=== PATIENT | male | born 1965 | race Two or more races ===

== ENCOUNTER 2020-05-13 06:14 | Day surgery (SDC) | payer OTHER ==
--- NOTE | 2020-04-15 07:51 | Pre-Procedure Note/Attestation ---
Pre-Procedure Note/Attestation Complete Prior to Procedure Planned Procedure: left Procedure Narrative: shoulder arthrscopy, sad Indications for Procedure Pre-Operative Diagnosis: left shoulder impingement syndrome Attestation I attest that I discussed the nature of the procedure; its benefits; risks and complications; and alternatives (and the risks and benefits of such alternatives), prior to the procedure, with the patient (or the patient's legal retail representative). I attest that, if there was a reasonable possibility of needing a blood transfusion, the patient (or the patient's legal retail representative) was given the [facility] standardized written summary, pursuant to the Aleksander Demetria Blood Safety Act ([place] Health and Safety Code # 1645, as amended). I attest that I re-evaluated the patient just prior to the surgery and that there has been no change in the patient's H&P, except as documented below: Kale Gutierrez MD Apr 15, 2020 07:51
--- NOTE | 2020-04-15 07:52 | Operative Note - PDOC ---
Operative Note Operative Note Pre-op Diagnosis: left shoulder impingement syndrome Procedure: see op report Post-op Diagnosis: same as pre-op plus Operative Findings: consistent w/pre-op dx studies Anesthesia: MAC Specimen: none Complications: none Condition: stable Estimated Blood Loss: none Drains: none Implant(s) used?: No Kale Gutierrez MD Apr 15, 2020 07:52
[2020-05-13] VITALS (11 sets, daily range): BP systolic 106–125; BP diastolic 57–78
[~2020-05-13] VITALS: Ht 180.3 cm; Wt 104.4 kg
[~2020-05-13 06:14] MED LIST: BRILINTA90 MG PO; D5 1/2NS 1,000 ML IV SCH; HYDROcodone/Acetamin 5/325 tab ORAL PRN; HYDROmorphone 1mg/ml Carpuject SUBQ PRN; Lidocaine 1% MPF 10mg/ml 5ml ONE; Midazolam 2mg/2ml Inj ONE; Ropivacaine 5mg/ml Vial 20ml INJ ONE; Tylenol #3 tab (300mg/30mg) ORAL PRN; XARELTO10 MG ORAL; ceFAZolin 1gm IVPB IVPB ONE; celeBREX 200mg Cap **SURGERY PATIENTS ONLY ORAL ONE; fentaNYL 100 mcg/2 mL IV ONE; oxyCONTIN 20mg tab ORAL ONE
[2020-05-13] MEDS ORDERED: METAPROLOL (07:23)
[2020-05-13] MEDS ORDERED: oxyCONTIN 20mg tab ORAL ONE (07:46)
--- NOTE | 2020-05-13 08:02 | Operative Note - PDOC ---
Operative Note Operative Note Pre-op Diagnosis: left shoulder impingement syndrome Procedure: see op report Post-op Diagnosis: same as pre-op plus Operative Findings: consistent w/pre-op dx studies Anesthesia: regional, MAC Specimen: none Complications: none Condition: stable Estimated Blood Loss: none Drains: none Implant(s) used?: No Kale Gutierrez MD May 13, 2020 08:02
--- NOTE | 2020-05-13 08:02 | Pre-Procedure Note/Attestation ---
Pre-Procedure Note/Attestation Complete Prior to Procedure Planned Procedure: left Procedure Narrative: shoulder arthroscopy, sad Indications for Procedure Pre-Operative Diagnosis: left shoulder impingement syndrome Attestation I attest that I discussed the nature of the procedure; its benefits; risks and complications; and alternatives (and the risks and benefits of such alternatives), prior to the procedure, with the patient (or the patient's legal customer service representative teacher). I attest that, if there was a reasonable possibility of needing a blood transfusion, the patient (or the patient's legal customer service representative teacher) was given the [facility] standardized written summary, pursuant to the Aleksander Demetria Blood Safety Act ([place] Health and Safety Code # 1645, as amended). I attest that I re-evaluated the patient just prior to the surgery and that there has been no change in the patient's H&P, except as documented below: Kale Gutierrez MD May 13, 2020 08:02
[2020-05-13] MEDS ORDERED: HYDROcodone/Acetamin 5/325 tab ORAL PRN (08:15)
[2020-05-13] MEDS ORDERED: Tylenol #3 tab (300mg/30mg) ORAL PRN (08:15)
[2020-05-13] MEDS ORDERED: HYDROmorphone 1mg/ml Carpuject SUBQ PRN (08:15)
[2020-05-13] MEDS ORDERED: fentaNYL 100 mcg/2 mL IV ONE (09:30)
[2020-05-13] MEDS ORDERED: Midazolam 2mg/2ml Inj ONE (09:31)
[2020-05-13] MEDS ORDERED: Lidocaine 1% MPF 10mg/ml 5ml ONE (09:33)
[2020-05-13] MEDS ORDERED: Ropivacaine 5mg/ml Vial 30ml INJ ONE (09:43)
--- NOTE | 2020-05-13 09:57 | Anethesia Preoperative Eval ---
Anesthesia Pre-op PMH/ROS General Date of Evaluation: May 13, 2020 Time of Evaluation: 09:52 Anesthesiologist: Amanda ASA Score: ASA 2 Mallampati Score Class I : Soft palate, uvula, fauces, pillars visible Class II: Soft palate, uvula, fauces visible Class III: Soft palate, base of uvula visible Class IV: Only hard plate visible Mallampati Classification: Class II Surgeon: Matt Diagnosis: L shoulder pain Surgical Procedure: L shoulder scope Anesthesia History: none Family History: no anesthesia problems Allergies: Coded Allergies: RED (FOOD COLOR) (Verified Allergy, Intermediate, numbness in lips with skin peeling, 04/14/20) Medications: see eMAR Patient NPO?: Yes Past Medical History Cardiovascular: Reports: HTN, CAD - coronary sten in place no recent CP Pulmonary: Denies: asthma, COPD, PILI, other Gastrointestinal/Genitourinary: Reports: GERD; Denies: CRI, ESRD, other Neurologic/Psychiatric: Reports: depression/anxiety; Denies: dementia, CVA, TIA, other Endocrine: Denies: DM, hypothyroidism, steroids, other HEENT: Denies: cataract (L), cataract (R), glaucoma, [place] (L), [place] (R), other Hematology/Immune: Reports: DVT - lower exremities, anticoagulaed Musculoskeletal/Integumentary: Denies: OA, RA, DJD, DDD, edema, other Other: other - overweight PMH Narrative: as above PSxH Narrative: coronary angiogram Anesthesia Pre-op Phys. Exam Physician Exam Last Vital Signs Date Time Temp Pulse Resp B/P (MAP) Pulse Ox O2 Delivery O2 Flow Rate FiO2 05/13/20 07:25 Room Air 05/13/20 07:15 97.1 54 18 117/71 100 Constitutional: NAD Neurologic: CN 2-12 intact Cardiovascular: RRR, no M/R/G Respiratory: CTA Gastrointestinal: S/NT/ND Airway Exam Mallampati Score: Class II MO: full Neck: stiff ROM: full Teeth: intact Dentures: no upper, no lower Anesthesia Pre-op A/P Labs see chart Studies Pre-op Studies: EKG - NSR Risk Assessment & Plan Assessment: ASA 2 Plan: GA with LMA brachial plexus block for postop pain control Status Change Before Surgery: No Pre-Antibiotics Drug: Ancef 2gr Given Within 1 Hr of Incision: Yes Time Given: 11:10 Sherwin Patel MD May 13, 2020 09:57
[2020-05-13] MEDS ORDERED: LR 1000ml 1,000 ML IVLG SCH (10:00)
[2020-05-13] MEDS ORDERED: DiphenhydrAMINE 50mg/ml Inj IVP PRN (10:00)
[2020-05-13] MEDS ORDERED: Meperidine 25mg/1ml Inj (FOR RIGORS ONLY) IV PRN (10:00)
[2020-05-13] MEDS ORDERED: Ketorolac 30mg Inj IV PRN (10:00)
[2020-05-13] MEDS ORDERED: Ketorolac 30mg Inj ONE ×2 (11:42→12:44)
[2020-05-13] MEDS ORDERED: Duramorph PF 5mg/10ml amp ONE (11:42)
[2020-05-13] MEDS ORDERED: Kenalog-40 1ml Vial ONE (11:42)
[2020-05-13] MEDS ORDERED: EPINEPHrine 1mg/1ml Amp ONE (11:42)
[2020-05-13] MEDS ORDERED: Bupivacaine 0.25% Inj 30ml INJ ONE (11:43)
[2020-05-13] MEDS ORDERED: LR 1000ml ONE (12:00)
[2020-05-13] MEDS ORDERED: Sterile Water Irrig 1000ml IRRIG ONE (12:00)
[2020-05-13] MEDS ORDERED: D5 1/2NS 1,000 ML IV SCH (12:00)
[2020-05-13] MEDS ORDERED: NS Irrig 3000ml IRRIG ONE ×2 (12:28→12:49)
[2020-05-13] MEDS ORDERED: Sodium Chloride 10ml vial INJ ONE (12:36)
[2020-05-13] MEDS ORDERED: ePHEDrine 50mg/ml Inj ONE (12:36)
--- NOTE | 2020-05-13 13:26 | Immediate Post-Op Evaluation ---
Immediate Post-Op Evalulation Immediate Post-Op Evalulation Procedure: L shoulder arthroscopy with subacromion decompression Date of Evaluation: May 13, 2020 Time of Evaluation: 13:25 IV Fluids: 700 Blood Products: none Estimated Blood Loss: min Urinary Output: none Blood Pressure Systolic: 113 Blood Pressure Diastolic: 72 Pulse Rate: 56 Respiratory Rate: 18 O2 Sat by Pulse Oximetry: 99 Temperature (Fahrenheit): 98.5 Pain Score (1-10): 1 Nausea: No Vomiting: No Complications none Patient Status: reacts, patent, none Hydration Status: adequate Sherwin Patel MD May 13, 2020 13:26
--- NOTE | 2020-05-13 15:05 | 48 Hour Post Anesthesia Eval ---
Post Anesthesia Evaluation Procedure: L shoulder arthroscopy with subacromion decompression Date of Evaluation: May 13, 2020 Time of Evaluation: 15:04 Blood Pressure Systolic: 116 0: 72 Pulse Rate: 58 Respiratory Rate: 20 Temperature (Fahrenheit): 97.6 O2 Sat by Pulse Oximetry: 98 Airway: patent Nausea: No Vomiting: No Pain Intensity: 1 Hydration Status: adequate Cardiopulmonary Status: stable Mental Status/LOC: patient returned to baseline Follow-up Care/Observations: n/a Post-Anesthesia Complications: none Follow-up care needed: ready to discharge Sherwin Patel MD May 13, 2020 15:05
--- NOTE | 2020-05-13 16:00 | Operative Note - Dictated ---
DATE OF OPERATION: 05/13/2020 PREOPERATIVE DIAGNOSIS: Left shoulder internal derangement. POSTOPERATIVE DIAGNOSES: 1. Grade 1 SLAP tear. 2. Left bursitis/tendinitis. PROCEDURE: 1. Left shoulder diagnostic arthroscopy and extensive intraarticular debridement. 2. Left shoulder subacromial decompression bursectomy. SURGEON: Kale Gutierrez MD ANESTHESIA: Interscalene with general. INDICATION FOR PROCEDURE: Patient is a pleasant 54-year-old gentleman who continued to have left shoulder pain. He failed conservative treatment and positive diagnostic injection with continued issues. He elected to undergo left shoulder arthroscopy and subacromial decompression bursectomy. Risks, limitations, expectations, and complications of the procedure were discussed in detail. All questions addressed. DESCRIPTION OF PROCEDURE: After informed consent was obtained, patient was brought to the operating room. Patient was placed under interscalene general anesthesia. Left shoulder was prepped and draped in a sterile manner. Ancef was administered. Time-out was performed. Inferolateral stab incision was then made. Trocar was introduced into the shoulder joint. Systematic tour of the shoulder was performed. No chondral damage. The anterior labrum was intact. Fraying of the superior labrum. Biceps tendon was intact. The articular side of the rotator cuff was intact. Shaver was then placed through the rotator interval. Debridement of superior labrum was performed. Negative peel-back test was confirmed. At that point, the camera was placed in the subacromial space. There was hypertrophic bursal tissue. The undersurface of the acromion was identified. Acromioplasty was started from lateral to medial and completed from posterior to anterior. At that point, the bursectomy was completed. Instruments removed. Portal sites were closed with 3-0 Monocryl sutures. ESTIMATED BLOOD LOSS: None. COMPLICATIONS: None. SPECIMENS: None. IMPLANTS: None. Kale Gutierrez M.D. DR: RAINA JOB#: [id number] CC:
== END 2020-05-13 15:20 | disposition home or self-care (01) ==
LOC: SUR 06:14
DX: M75.22 Bicipital tendinitis, left shoulder (principal); S43.432A Superior glenoid labrum lesion of left shoulder, initial encounter; X58.XXXA Exposure to other specified factors, initial encounter; Y92.9 Unspecified place or not applicable; I11.9 Hypertensive heart disease without heart failure; I25.10 Atherosclerotic heart disease of native coronary artery without angina pectoris; Z95.5 Presence of coronary angioplasty implant and graft; K21.9 Gastro-esophageal reflux disease without esophagitis; F32.9 Major depressive disorder, single episode, unspecified; F41.9 Anxiety disorder, unspecified; Z86.718 Personal history of other venous thrombosis and embolism; E66.3 Overweight; Z68.32 Body mass index [BMI] 32.0-32.9, adult
CPT/HCPCS: 29823; 94003; J0171; J0690; J1885; J2250; J2704; J2795; J3010; J3301; J3490; J7120; U0002; 94150